=== PATIENT | female | born 1995 | race Caucasian/White ===

== ENCOUNTER 2018-02-23 22:31 | Emergency (ER) | payer OTHER ==
[~2018-02-23] VITALS: Ht 154.9 cm; Wt 48.4 kg
[2018-02-23 22:34] VITALS: BP 109/68
== END 2018-02-23 23:30 | disposition home or self-care (01) ==
LOC: ED 23:21
DX: K08.89 Other specified disorders of teeth and supporting structures (principal)
CPT/HCPCS: 99283